=== PATIENT | male | born 1990 | race Caucasian/White ===

== ENCOUNTER 2016-12-03 21:49 | Emergency (ER) | payer OTHER ==
[2016-12-03 22:42] VITALS: BP 133/86
--- NOTE | 2016-12-03 23:10 | UC ---
UC General HPI - HPI Summary HPI Summary: The patient comes in today for: 1. Poor hearing--right ear. Onset: 2-3 weeks. Palliative/provocative: Nothing makes it better or worse. Quality: no pain Region: Right ear. Severity: 0/10 Time: Constant. Associated symptoms: He can hear "a little bit." Allergies are acting up. Vertigo: None. Cough: Nothing comes up. Sinus: full Rhinitis: Clear. He has allergies which he is treating with an [id number] antihistamine. * - History of Current Complaint Chief Complaint: UCEar Stated Complaint: EAR PAIN Time Seen by Provider: 12/03/16 23:02 Hx Obtained From: Patient, Family/Project [employer] - Allergy/Home Medications Allergies/Adverse Reactions: Allergies Allergy/AdvReac Type Severity Reaction Status Date / Time Malt AdvReac Intermediate Agitation Verified 12/03/16 22:43 Steroid MDI AdvReac Severe Agitation Uncoded 12/03/16 22:43 DAIRY AdvReac Mild Congestion Uncoded 12/03/16 22:43 PMH/Surg Hx/FS Hx/Imm Hx Previously Healthy: No Endocrine History Of: Denies: Diabetes, Thyroid Disease, Hyperthyroidism, Hypothyroidism, Dyslipidemia Cardiovascular History Of: Denies: Cardiac Disorders, Hypertension, Pacemaker/ICD, Myocardial Infarction , Congestive Heart Failure, Atrial Fibrillation, Deep Vein Thrombosis, Bleeding Disorders Respiratory History Of: Reports: Asthma - allergy induced Denies: COPD, Bronchitis, Pneumonia, Pulmonary Embolism GI/ History Of: Reports: Gastroesophageal Reflux - He is not on medication for this, but he has "stomach issues." Denies: Ulcer, Gastrointestinal Bleed, Gall Bladder Disease, Kidney Stones, Diverticulitis, Renal Disease, Urosepsis Neurological History Of: Denies: TIA, CVA, Dementia, Seizures, Migraine Psychological History Of: Reports: Anxiety - Mother states that he has "severe anxiety." Denies: Depression, Bipolar Disorder, Schizophrenia, Post Traumatic Stress Disorder Cancer History Of: Denies: Lung Cancer, Colorectal Cancer, Breast Cancer, Prostate Cancer, Cervical Cancer Other History Of: Negative For: HIV, Hepatitis B, Hepatitis C, Anticoagulant Therapy - Surgical History Surgical History: Yes Surgery Procedure, Year, and Place: RHINOPLASTY 2004. TONSILLECTOMY 1992 - Family History Known Family History: Positive: Cardiac Disease, Hypertension, Diabetes - Social History Occupation: Employed Full-time Alcohol Use: Rare Substance Use Type: Marijuana Smoking Status (MU): Heavy Every Day Tobacco Smoker Type: Cigarettes Amount Used/How Often: 1/2 - 1 PPD Length of Time of Smoking/Using Tobacco: since age 18 Have You Smoked in the Last Year: Yes - Immunization History Most Recent Influenza Vaccination: "Last year" Most Recent Tetanus Shot: unknown Most Recent Pneumonia Vaccination: unsure Review of Systems Constitutional: Negative Skin: Negative Eyes: Negative ENT: Negative Respiratory: Negative Cardiovascular: Negative Gastrointestinal: Negative Genitourinary: Negative All Other Systems Reviewed And Are Negative: Yes Physical Exam Triage Information Reviewed: Yes Appearance: Well-Appearing, No Pain Distress, Well-Nourished Vital Signs: Initial Vital Signs Temp 98.5 F 12/03/16 22:38 Pulse 76 12/03/16 22:38 Resp 20 12/03/16 22:38 BP 133/86 12/03/16 22:38 Pulse Ox 97 12/03/16 22:38 Vital Signs Reviewed: Yes Eyes: Positive: Conjunctiva Clear. Negative: Discharge ENT: Positive: Hearing grossly normal. Negative: Pharyngeal erythema, Nasal congestion, Nasal drainage, TM bulging, TM dull, TM red, Tonsillar swelling, Tonsillar exudate Dental: Negative: Gross Decay/Caries @, Dental Fracture @ Neck: Positive: Supple, Nontender, No Lymphadenopathy. Negative: Nuchal Rigidity Respiratory: Positive: Lungs clear, No respiratory distress, No accessory muscle use. Negative: Rhonchi, Wheezing Cardiovascular: Positive: RRR, No Murmur Abdomen Description: Positive: Nontender, No Organomegaly, Soft. Negative: Distended, Guarding Musculoskeletal: Positive: Strength Intact, ROM Intact Neurological: Positive: Alert, Muscle Tone Normal Psychological: Positive: Normal Response To Family, Age Appropriate Behavior, Consolable Skin: Negative: rashes, breakdown Course/Dx - Course Course Of Treatment: The patient was told that his ear exam was normal-- suggests that he has eustachian tube dysfunction. He was told what this was and how to treat it. He wants to try Singulair. - Differential Dx - Multi-Symptom Provider Diagnoses: Eustachian tube dysfunction Discharge - Discharge Plan Condition: Stable Disposition: HOME Referrals: Gurpreet Joya MD [Primary Care Provider] - 2 Weeks Additional Instructions: Please take the Singulair and try popping your ears with blowing up new balloons. See your primary care provider in about 2 to 4 weeks to see how you are doing. If you get worse, please be seen again at that time.
== END 2016-12-03 23:29 | disposition home or self-care (01) ==
LOC: UCEAST 21:49
DX: H69.91 Unspecified Eustachian tube disorder, right ear (principal); J45.909 Unspecified asthma, uncomplicated; K21.9 Gastro-esophageal reflux disease without esophagitis; F41.9 Anxiety disorder, unspecified; F17.210 Nicotine dependence, cigarettes, uncomplicated
CPT/HCPCS: 99212; G0463

== ENCOUNTER 2017-06-27 15:09 | Emergency (ER) | payer OTHER ==
[2017-06-27 15:44] VITALS: BP 130/77
--- NOTE | 2017-06-27 16:03 | UC ---
Nausea/Vomiting/Diarrhea HPI - HPI Summary HPI Summary: 26 year old male presents with severe projectile vomiting and nausea. - History of Current Complaint Chief Complaint: UCGeneralIllness Stated Complaint: VOMMITING/DIARRHEA Time Seen by Provider: 06/27/17 16:02 Hx Obtained From: Patient Onset/Duration: Sudden Onset Severity Initially: Moderate Severity Currently: Moderate Pain Scale Used: 0-10 Numeric - 7 Character: Sharp Alleviating Factor(s): Nothing - Allergies/Home Medications Allergies/Adverse Reactions: Allergies Allergy/AdvReac Type Severity Reaction Status Date / Time Malt AdvReac Intermediate Agitation Verified 06/27/17 15:38 Steroid MDI AdvReac Severe Agitation Uncoded 06/27/17 15:38 DAIRY AdvReac Mild Congestion Uncoded 06/27/17 15:38 Home Medications: Home Medications NK [No Home Medications Reported] 06/27/17 [History Confirmed 06/27/17] PMH/Surg Hx/FS Hx/Imm Hx Previously Healthy: Yes Other History Of: Negative For: HIV, Hepatitis B, Hepatitis C, Anticoagulant Therapy - Surgical History Surgical History: Yes Surgery Procedure, Year, and Place: RHINOPLASTY 2004. TONSILLECTOMY 1992 - Family History Known Family History: Positive: Cardiac Disease, Hypertension, Diabetes - Social History Alcohol Use: None Substance Use Type: Marijuana Smoking Status (MU): Heavy Every Day Tobacco Smoker Type: Cigarettes Amount Used/How Often: 1/2 - 1 PPD Length of Time of Smoking/Using Tobacco: since age 18 Have You Smoked in the Last Year: Yes - Immunization History Most Recent Influenza Vaccination: "Last year" Most Recent Tetanus Shot: unknown Most Recent Pneumonia Vaccination: unsure Review of Systems Constitutional: Fatigue Skin: Negative Eyes: Negative ENT: Negative Respiratory: Negative Cardiovascular: Negative Gastrointestinal: Vomiting, Diarrhea, Nausea Genitourinary: Negative Motor: Negative Neurovascular: Negative Musculoskeletal: Negative Neurological: Negative Psychological: Negative All Other Systems Reviewed And Are Negative: Yes Physical Exam Triage Information Reviewed: Yes Vital Signs: Initial Vital Signs Temp 36.6 C 06/27/17 15:39 Pulse 93 06/27/17 15:39 Resp 20 06/27/17 15:39 BP 130/77 06/27/17 15:39 Pulse Ox 99 06/27/17 15:39 Vital Signs Reviewed: Yes Eye Exam: Normal ENT Exam: Normal Dental Exam: Normal Neck exam: Normal Neck: Positive: 1 Respiratory Exam: Normal Cardiovascular Exam: Normal Abdominal Exam: Normal Musculoskeletal Exam: Normal Neurological Exam: Normal Psychological Exam: Normal Skin Exam: Normal Naus/Vom/Diarrhea Course/Dx - Differential Dx/Diagnosis Provider Diagnoses: nausea. vomitting Condition At Discharge: Stable Discharge - Discharge Plan Condition: Stable Disposition: OTHER Discharge Disposition Comment: patient suggested to go to the er Patient Education Materials: Medicinal Use of Cannabis (ED) Referrals: Keith Bishop NP [Primary Care Provider] - Additional Instructions: patient suggested to go to the er for severe nausea and vomiting
== END 2017-06-27 16:23 ==
LOC: UCEAST 15:09
DX: R11.2 Nausea with vomiting, unspecified (principal); Z72.0 Tobacco use
CPT/HCPCS: 87502; 99212; G0463

== ENCOUNTER 2017-06-27 16:35 | Emergency (ER) | payer OTHER ==
[2017-06-27] MEDS ORDERED: Ondansetron INJ* 2 MG/ML VIAL ONE (17:08)
[2017-06-27] MEDS ORDERED: Ondansetron INJ* 2 MG/ML VIAL IV ONE (17:23)
[2017-06-27] MEDS ORDERED: NS 0.9% 1000 ML* 1,000 ML IV ONE (17:28)
[2017-06-27 17:45] LABS: Hematocrit 52 % (42-52); Hemoglobin 17.3 g/dl (14.0-18.0); Mean Corpuscular HGB Conc 33 g/dl (31-36); Mean Corpuscular Hemoglobin 29 pg (27-31); Mean Corpuscular Volume 87 fL (80-94); Mean Platelet Volume 7 um3 (7.4-10.4); Red Blood Count 6.01 10^6/ul (4.0-5.4); Red Cell Distribution Width 14 % (10.5-15); White Blood Count 14.5 10^3/ul (3.5-10.8)
[2017-06-27] MEDS ORDERED: Metoclopramide IV* 5 MG/ML 2 ML VIAL IV ONE (17:50)
[2017-06-27 18:00] LABS: Albumin 5.2 g/dL (3.2-5.2); BUN/Creatinine Ratio 18.5 (8-20); Calcium 9.9 mg/dL (8.6-10.3); EGFR African American 106.3 (>60); EGFR Non-African American 82.6 (>60); Globulin 3.1 g/dL (2-4); Magnesium 2.1 mg/dL (1.9-2.7); Potassium 4.3 mmol/L (3.5-5.0); Total Bilirubin 1.1 mg/dL (0.2-1.0); Total Protein 8.3 g/dL (6.4-8.9)
[2017-06-27] MEDS ORDERED: diPHENhydraMINE IV* 50 MG/ML 1 ml VIAL (BENADRYL) IV ONE (19:20)
[2017-06-27] MEDS ORDERED: diPHENhydraMINE IV* 50 MG/ML 1 ml VIAL (BENADRYL) ONE (19:21)
[2017-06-27] MEDS ORDERED: LORazepam INJ* 2 MG/ML 1 ML VIAL IV PUSH ONE (19:25)
[2017-06-27] MEDS ORDERED: LORazepam INJ* 2 MG/ML 1 ML VIAL ONE (19:25)
[2017-06-27] MEDS ORDERED: Ondansetron ODT TAB* 4 MG PO ONE (20:17)
[2017-06-27] MEDS ORDERED: LORazepam TAB(*) 1 MG PO ONE (20:17)
--- NOTE | 2017-06-27 20:20 | ED ---
Rosalva Nunn Gabriel, scribed for Shantell Park MD on 06/27/17 at 1859 . Complex/Multi-Sys Presentation - HPI Summary HPI Summary: This patient is a 26 year old M presenting to [facility], transferred from [facility] by private car accompanied by his mother with a chief complaint of vomiting and diarrhea that began 16 hours ago. Pt has hx seizures, sees Dr. Cherry and Dr. Gordon, and uses CBD oil daily to control his seizures. Patient denies fever, sore throat, ABD pain, BEAUCHAMP, and CP. Pt had an influenza swab done at that was neg. Patient reports having similar episodes when he was 7 and 15 years old during these his potassium dropped. He smokes CBD oil daily for seizures and hasnt had one since a year ago. He cannot drink alcohol or eat tomatoes without vomiting and while at a [employer] he ate hot dogs that he believe had both of these in it. - History Of Current Complaint Chief Complaint: EDNauseaVomitDiarrh Time Seen by Provider: 06/27/17 17:28 Hx Obtained From: Patient, Family/[employer] - mother Onset/Duration: Sudden Onset, Lasting Hours - 16, Still Present Timing: Constant Severity Currently: Moderate Severity Initially: Moderate Location: Negative - no pain Aggravating Factor(s): nothing Alleviating Factor(s): nothing Associated Signs And Symptoms: Positive: Nausea, Vomiting, Diarrhea, Other - neg sore throat or URI sxs, no cough, no urinary symptoms.. Negative: Headache , Chest Pain, Abdominal Pain - Allergies/Home Medications Allergies/Adverse Reactions: Allergies Allergy/AdvReac Type Severity Reaction Status Date / Time Metoclopramide [From Reglan] Allergy Agitation Verified 06/27/17 19:28 Malt AdvReac Intermediate Agitation Verified 06/27/17 15:38 Steroid MDI AdvReac Severe Agitation Uncoded 06/27/17 15:38 DAIRY AdvReac Mild Congestion Uncoded 06/27/17 15:38 PMH/Surg Hx/FS Hx/Imm Hx Previously Healthy: No - seizures Endocrine/Hematology History: Denies: Hx Anticoagulant Therapy, Hx Diabetes, Hx Thyroid Disease Cardiovascular History: Denies: Hx Congestive Heart Failure, Hx Deep Vein Thrombosis, Hx Hypertension , Hx Myocardial Infarction, Hx Pacemaker/ICD Comment Only: Other Cardiovascular Problems/Disorders - PALPATIONS A CHILD Respiratory History: Reports: Hx Asthma - allergy induced Denies: Hx Chronic Obstructive Pulmonary Disease (COPD), Hx Lung Cancer, Hx Pneumonia, Hx Pulmonary Embolism GI History: Denies: Hx Gall Bladder Disease, Hx Gastrointestinal Bleed, Hx Ulcer, Hx Urosepsis History: Denies: Hx Kidney Stones, Hx Renal Disease Musculoskeletal History: Reports: Other Musculoskeletal History - hx B/L torn rotator cuff Sensory History: Denies: Hx Hearing Aid Neurological History: Reports: Hx Seizures - but normal EEG noted in record in 2013 Denies: Hx Dementia, Hx Migraine, Hx Transient Ischemic Attacks (TIA) Psychiatric History: Reports: Hx Anxiety - Mother states that he has "severe anxiety.", Hx Panic Disorder - ANXIETY, Hx of Violent Episodes Against Others Denies: Hx Eating Disorder, Hx Depression, Hx Schizophrenia, Hx Bipolar Disorder - Surgical History Surgery Procedure, Year, and Place: RHINOPLASTY 2004. TONSILLECTOMY 1992 - Immunization History Immunizations Up to Date: Yes Infectious Disease History: No Infectious Disease History: Denies: Hx Clostridium Difficile, Hx Hepatitis, Hx Human Immunodeficiency Virus (HIV), Hx of Known/Suspected MRSA, Hx Shingles, Hx Tuberculosis, Hx Known/ Suspected VRE, Hx Known/Suspected VRSA, History Other Infectious Disease - HX ENCEPHALITIS, Traveled Outside the [place] in Last 30 Days - Family History Known Family History: Positive: Cardiac Disease, Hypertension, Diabetes, Other - note pt is adopted, but he knows his parents' histories - Social History Lives: With Family Alcohol Use: None Hx Substance Use: Yes Substance Use Type: Reports: Marijuana - for medicinal use per pt Hx Tobacco Use: Yes Smoking Status (MU): Heavy Every Day Tobacco Smoker Type: Cigarettes Amount Used/How Often: 1/2 - 1 PPD Length of Time of Smoking/Using Tobacco: since age 18 Have You Smoked in the Last Year: Yes Review of Systems Positive: Fatigue. Negative: Fever Negative: Sore Throat Negative: Chest Pain Respiratory: Negative Positive: Vomiting, Diarrhea, Nausea. Negative: Abdominal Pain Genitourinary: Negative Skin: Negative Negative: Headache Psychological: Normal All Other Systems Reviewed And Are Negative: Yes Physical Exam - Summary Physical Exam Summary: Appearance: Ill-appearing, no pain distress, Well-nourished Skin: Warm, color reflects adequate perfusion Head: Normal Head/Face Eyes: Conjunctiva clear ENT: TM's clear, pharynx normal, Neck: Supple, nontender, no lymphadenopathy Respiratory: Lungs clear, Normal breath sounds, no respiratory distress Cardio: RRR, No murmur, pulses normal, brisk capillary refill Abdomen: soft, nontender, no organomegaly, no masses Bowel sounds: present Musculoskeletal: Strength Intact/ ROM intact Neuro: Alert, muscle tone normal, facial symmetry, speech normal, sensory/motor intact A&Ox3, CN II-XII intact, Gait WNL Psychological: Normal Triage Information Reviewed: Yes Vital Signs On Initial Exam: Initial Vitals Temp Pulse Resp BP Pulse Ox 98.1 F 78 18 147/84 99 06/27/17 16:49 06/27/17 16:49 06/27/17 16:49 06/27/17 16:49 06/27/17 16:49 Vital Signs Reviewed: Yes - Meena Coma Scale Coma Scale Total: 15 Diagnostics - Vital Signs Vital Signs Temp Pulse Resp BP Pulse Ox 06/27/17 16:49 98.1 F 78 18 147/84 99 - Laboratory Lab Results: Lab Results 06/27/17 06/27/17 Range/Units 17:17 17:17 WBC 14.5 H (3.5-10.8) 10^3/ul RBC 6.01 H (4.0-5.4) 10^6/ul Hgb 17.3 (14.0-18.0) g/dl Hct 52 (42-52) % MCV 87 (80-94) fL MCH 29 (27-31) pg MCHC 33 (31-36) g/dl RDW 14 (10.5-15) % Plt Count 211 (150-450) 10^3/ul MPV 7 L (7.4-10.4) um3 Neut % (Auto) 90.7 H (38-83) % Lymph % (Auto) 5.4 L (25-47) % Grady % (Auto) 3.7 (1-9) % Eos % (Auto) 0.1 (0-6) % Baso % (Auto) 0.1 (0-2) % Absolute Neuts (auto) 13.2 H (1.5-7.7) 10^3/ul Absolute Lymphs (auto) 0.8 L (1.0-4.8) 10^3/ul Absolute Monos (auto) 0.5 (0-0.8) 10^3/ul Absolute Eos (auto) 0 (0-0.6) 10^3/ul Absolute Basos (auto) 0 (0-0.2) 10^3/ul Absolute Nucleated RBC 0 10^3/ul Nucleated RBC % 0 Sodium 139 (133-145) mmol/L Potassium 4.3 (3.5-5.0) mmol/L Chloride 104 (101-111) mmol/L Carbon Dioxide 27 (22-32) mmol/L Anion Gap 8 (2-11) mmol/L BUN 20 (6-24) mg/dL Creatinine 1.08 (0.67-1.17) mg/dL Est GFR ( Amer) 106.3 (>60) Est GFR (Non-Af Amer) 82.6 (>60) BUN/Creatinine Ratio 18.5 (8-20) Glucose 133 H (70-100) mg/dL Calcium 9.9 (8.6-10.3) mg/dL Magnesium 2.1 (1.9-2.7) mg/dL Total Bilirubin 1.10 H (0.2-1.0) mg/dL AST 21 (13-39) U/L ALT 27 (7-52) U/L Alkaline Phosphatase 85 (34-104) U/L Total Protein 8.3 (6.4-8.9) g/dL Albumin 5.2 (3.2-5.2) g/dL Globulin 3.1 (2-4) g/dL Albumin/Globulin Ratio 1.7 (1-3) Lipase 10 L (11.0-82.0) U/L Result Diagrams: 17 17:17 17 17:17 Lab Statement: Any lab studies that have been ordered have been reviewed, and results considered in the medical decision making process. Re-Evaluation - Re-Evaluation First Eval Re-Evaluation Time: 19:20 - pt with extrapyramidal side effects of reglan, pacing in room, can't sit still; no dystonia of face. Rx'd with benadryl and lorazepam with complete resolution. Pt resting comfortably, resps unlabored. Change: Worse Second Eval Re-Evaluation Time: 21:00 - temp 100.7, no vomiting in ED, continues to deny focal symptoms for source of fever, neck supple, no BEAUCHAMP. Given acetaminophen. Mother is comfortable with discharge home. Pt is ambulatory with a steady gait. Change: Worse Complex Multi-Symp Course/Dx Course Of Treatment: pt was given zofran x 2, with continued nausea, no further vomiting. WBC count 14.3 with 90% neutrophils. Influenza was neg at . K+ is normal. Reglan given and shortly afterward pt couldn't sit still. Up pacing from the stretcher. Medicated with benadryl and lorazepam with complete resolution of symptoms. Pt rested in ED after meds. Developed temp 100.7 at time of discharge. Pt not toxic appearing. Mother and pt agreeeable to discharge. Given acetaminophen prior to DC. Pt labeled self as allergic to reglan, with reaction extrapyramidal symptoms. - Diagnoses Differential Diagnoses/HQI/PQRI: Metabolic Abnormality, Sepsis, Urinary Tract Infection Provider Diagnoses: Nausea & vomiting, Extrapyramidal and movement disorder, unspecified Discharge - Discharge Plan Condition: Stable Disposition: HOME Prescriptions: Lorazepam [Ativan 1 MG TAB] 1 mg PO Q8H PRN #10 tab MDD 3 PRN Reason: Agitation Ondansetron ODT TAB* [Zofran 4 MG Odt TAB*] 4 mg PO Q6H PRN #20 tab.odt PRN Reason: Vomiting Patient Education Materials: Acute Nausea and Vomiting (ED), Extrapyramidal Symptoms (ED) Forms: *Work Release Referrals: Keith Bishop, JOINT CUTTER [Primary Care Provider] - 3 Days Additional Instructions: You had an adverse reaction to reglan, and extrapyramidal reaction. We gave you benadryl and lorazepam to treat that adverse reaction. You may continue to take benadryl 25-50mg every 6 hrs as needed if you still feel restlessness. You may also take lorazepam as directed for these symptoms. Label yourself as allergic to reglan. The vomiting is probably a viral syndrome. You may take ondansetron as directed if you have further nausea and vomiting. You did not have an adverse reaction to ondansetron and we gave that to you in the ER. Return to the ER if you have new or worsening symptoms. The documentation as recorded by the Rosalva meyer Gabriel accurately reflects the service I personally performed and the decisions made by me, Shantell Park MD.
[2017-06-27] MEDS ORDERED: Acetaminophen TAB* 325 MG PO ONE (20:46)
[2017-06-27 20:56] VITALS: BP 123/73
== END 2017-06-27 21:04 | disposition home or self-care (01) ==
LOC: ED 16:35
DX: R11.2 Nausea with vomiting, unspecified (principal); G25.9 Extrapyramidal and movement disorder, unspecified; F17.210 Nicotine dependence, cigarettes, uncomplicated
CPT/HCPCS: 36415; 80053; 83690; 83735; 85025; A9270-GY; J1200; J2060; J2405; J2765

== ENCOUNTER 2019-02-17 22:59 | Emergency (ER) | payer OTHER ==
[2019-02-17] MEDS ORDERED: Ondansetron INJ* 2 MG/ML VIAL IV ONE (23:58)
[2019-02-17] MEDS ORDERED: NS 0.9% 1000 ML** 1,000 ML IV ONE (23:58)
[2019-02-18] MEDS ORDERED: NS 0.9% 1000 ML** 1,000 ML IV ONE (00:57)
--- NOTE | 2019-02-18 01:04 | ED ---
Seizure - HPI Summary HPI Summary: 28-year-old male presents with potential seizure today. He has a history of seizures. Mom states that was with him and also he became unresponsive. Face seem to contort and then he seemed to have a whole body spasms. He then fell to the floor. Mom states that she called EMS and while she was on the phone he seemed to stop breathing for a couple seconds. He then seemed to be hyperventilating. He continued to have full body spasms. Mom states that then he seemed to wake up a little bit but was very uncoordinated and kept falling and hitting his head. He was not able to talk during this time. Mom states this is unlike any of his other seizures. Mom states that he was tried on different seizure medication when he was 18 and had terrible side effects. They decided to do medical marijuana and that seemed to control seizures for years as not had a seizure since was 18. States that he was under a lot of stress today. He also was little bit dehydrated. He states he was little nauseous and vomited before the seizure like activity started. He is back to his baseline. He admits a little bit headache. He denies any dizziness. admits to nausea. No vomiting. No abdominal pain. He states he does not remember any of this. He states he is very sensitive to medicine. Also admits to some muscle cramps. - History Of Current Complaint Chief Complaint: EDSeizure Time Seen by Provider: 02/17/19 23:46 - Allergies/Home Medications Allergies/Adverse Reactions: Allergies Allergy/AdvReac Type Severity Reaction Status Date / Time metoclopramide [From Reglan] Allergy Agitation Verified 09/10/18 20:38 malt Allergy Agitation Uncoded 09/10/18 20:38 Steroid MDI AdvReac Severe Agitation Uncoded 09/10/18 20:38 DAIRY AdvReac Mild Congestion Uncoded 09/10/18 20:38 Home Medications: Home Medications Non Formulary Respiratory Med [Non Formulary Respiratory Med(Nf)] 1 dose PO DAILY 02/18/19 [History Confirmed 02/18/19] PMH/Surg Hx/FS Hx/Imm Hx Endocrine/Hematology History: Denies: Hx Anticoagulant Therapy, Hx Diabetes, Hx Thyroid Disease Cardiovascular History: Denies: Hx Congestive Heart Failure, Hx Deep Vein Thrombosis, Hx Hypertension , Hx Myocardial Infarction, Hx Pacemaker/ICD Comment Only: Other Cardiovascular Problems/Disorders - PALPATIONS A CHILD Respiratory History: Reports: Hx Asthma - allergy induced Denies: Hx Chronic Obstructive Pulmonary Disease (COPD), Hx Lung Cancer, Hx Pneumonia, Hx Pulmonary Embolism GI History: Denies: Hx Gall Bladder Disease, Hx Gastrointestinal Bleed, Hx Ulcer, Hx Urosepsis History: Denies: Hx Kidney Stones, Hx Renal Disease Musculoskeletal History: Reports: Hx Back Problems - "bad discs", Other Musculoskeletal History - hx B/L torn rotator cuff Sensory History: Denies: Hx Hearing Aid Neurological History: Reports: Hx Seizures - but normal EEG noted in record in 2013 Denies: Hx Dementia, Hx Migraine, Hx Transient Ischemic Attacks (TIA) Psychiatric History: Reports: Hx Anxiety - Mother states that he has "severe anxiety.", Hx Panic Disorder - ANXIETY, Hx of Violent Episodes Against Others Denies: Hx Eating Disorder, Hx Depression, Hx Schizophrenia, Hx Bipolar Disorder - Surgical History Surgery Procedure, Year, and Place: RHINOPLASTY 2004. TONSILLECTOMY 1992 - Immunization History Immunizations Up to Date: Yes Infectious Disease History: No Infectious Disease History: Denies: Hx Clostridium Difficile, Hx Hepatitis, Hx Human Immunodeficiency Virus (HIV), Hx of Known/Suspected MRSA, Hx Shingles, Hx Tuberculosis, Hx Known/ Suspected VRE, Hx Known/Suspected VRSA, History Other Infectious Disease - HX ENCEPHALITIS, Traveled Outside the [place] in Last 30 Days - Family History Known Family History: Positive: Cardiac Disease, Hypertension, Diabetes, Other - note pt is adopted, but he knows his parents' histories - Social History Alcohol Use: None Hx Substance Use: Yes Substance Use Type: Reports: Marijuana Substance Use Comment - Amount & Last Used: 02/17/19 Hx Tobacco Use: Yes Smoking Status (MU): Heavy Every Day Tobacco Smoker Type: Cigarettes Amount Used/How Often: 1/2 - 1 PPD Length of Time of Smoking/Using Tobacco: since age 18 Have You Smoked in the Last Year: Yes Review of Systems Negative: Fever Negative: Chest Pain Negative: Shortness Of Breath Neurological: Other - seizure Positive: Headache All Other Systems Reviewed And Are Negative: Yes Physical Exam Triage Information Reviewed: Yes Vital Signs On Initial Exam: Initial Vitals Temp Pulse Resp BP Pulse Ox 99.1 F 96 18 129/73 97 02/17/19 23:13 02/17/19 23:13 02/17/19 23:13 02/17/19 23:13 02/17/19 23:13 Vital Signs Reviewed: Yes Appearance: Positive: Well-Appearing Skin: Positive: Warm, Dry Head/Face: Positive: Normal Head/Face Inspection Eyes: Positive: Normal, EOMI, SOUTH, Conjunctiva Clear ENT: Positive: Pharynx normal, TMs normal, Other - mucous membranes appear dry Respiratory/Lung Sounds: Positive: Clear to Auscultation, Breath Sounds Present Cardiovascular: Positive: Normal, RRR Abdomen Description: Positive: Nontender, Soft Bowel Sounds: Positive: Present Musculoskeletal: Positive: Normal Neurological: Positive: Sensory/Motor Intact, Alert, Oriented to Person Place, Time, CN Intact II-III Psychiatric: Positive: Normal Diagnostics - Vital Signs Vital Signs Temp Pulse Resp BP Pulse Ox 02/18/19 00:00 90 24 95 02/17/19 23:50 91 18 122/73 98 02/17/19 23:30 92 21 96 02/17/19 23:20 90 15 129/73 99 02/17/19 23:13 99.1 F 96 18 129/73 97 - Laboratory Result Diagrams: 02/18/19 00:57 02/18/19 00:57 Lab Statement: Any lab studies that have been ordered have been reviewed, and results considered in the medical decision making process. - EKG No standard instances Cardiac Rate: NL EKG Rhythm: Sinus Rhythm EKG Comparison: No Significant Change Summary of EKG Findings: sinus rhythm, early repolization Re-Evaluation - Re-Evaluation First Eval Re-Evaluation Time: 01:37 Comment: patient asleep. discussed with mom that do not want to start seizure meds at this time. patient is very anxious so will give dose of ativan. Course/Dx - Course Course Of Treatment: 28-year-old male presents with potential seizure today. He has a history of seizures. Mom states that was with him and also he became unresponsive. Face seem to contort and then he seemed to have a whole body spasms. He then fell to the floor. Mom states that she called EMS and while she was on the phone he seemed to stop breathing for a couple seconds. He then seemed to be hyperventilating. He continued to have full body spasms. Mom states that then he seemed to wake up a little bit but was very uncoordinated and kept falling and hitting his head. He was not able to talk during this time. Mom states this is unlike any of his other seizures. Mom states that he was tried on different seizure medication when he was 18 and had terrible side effects. They decided to do medical marijuana and that seemed to control seizures for years as not had a seizure since was 18. States that he was under a lot of stress today. He also was little bit dehydrated. He states he was little nauseous and vomited before the seizure like activity started. He is back to his baseline. He admits a little bit headache. He denies any dizziness. admits to nausea. No vomiting. No abdominal pain. He states he does not remember any of this. He states he is very sensitive to medicine. Also admits to some muscle cramps. On exam has normal neuro exam. Appears dry. Gave some fluids. White blood cell count 12. potassium slightly low at 3.3 so gave supplement. discussed adding on seizure meds but patient has had such a bad reaction in the past that do not want to start any at this time. told to follow up with neurology. pateint understand and agrees with plan. - Diagnoses Differential Diagnosis/HQI/PQRI: Positive: Metabolic Disorder, Known Seizure Disorder Provider Diagnoses: Seizure Discharge - Sign-Out/Discharge Documenting (check all that apply): Patient Departure Patient Received Moderate/Deep Sedation with Procedure: No - Discharge Plan Condition: Good Disposition: HOME Patient Education Materials: Epilepsy (ED) Referrals: Keith Bishop NP [Primary Care Provider] - Alfredo Valenzuela MD [Medical Doctor] - Additional Instructions: follow up with neurology Return to ED if develop any new or worsening symptoms - Billing Disposition and Condition Condition: GOOD Disposition: Home
[2019-02-18 01:07] LABS: ABS Lymphocytes 1.7 10^3/ul (1.0-4.8); ABS Monocytes 0.7 10^3/ul (0-0.8); ABS Neutrophils 9.9 10^3/ul (1.5-7.7); Hematocrit 42 % (42-52); Hemoglobin 14.2 g/dL (14.0-18.0); Lymphocyte % 13.6 %; Mean Corpuscular HGB Conc 34 g/dL (31-36); Mean Corpuscular Hemoglobin 29 pg (27-31); Mean Corpuscular Volume 86 fL (80-94); Mean Platelet Volume 7.3 fL (7.4-10.4); Nucleated Red Blood Cells % 0.1; Platelet Count 172 10^3/uL (150-450); Red Blood Count 4.86 10^6 /uL (4.18-5.48); Red Cell Distribution Width 13 % (10-15); White Blood Count 12.3 10^3/uL (3.5-10.8)
[2019-02-18 01:14] LABS: INR 1.08 (0.82-1.09)
[2019-02-18 01:26] LABS: Albumin 4.6 g/dL (3.2-5.2); BUN/Creatinine Ratio 15.6 (8-20); Calcium 9.5 mg/dL (8.6-10.3); EGFR African American 112.9 (>60); EGFR Non-African American 93.3 (>60); Globulin 2.3 g/dL (2-4); HDL Cholesterol 33.9 mg/dL; Magnesium 2.1 mg/dL (1.9-2.7); Potassium 3.3 mmol/L (3.5-5.0); Total Bilirubin 0.8 mg/dL (0.2-1.0); Total Protein 6.9 g/dL (6.4-8.9)
[2019-02-18] MEDS ORDERED: Potassium Chlor TAB* 20 MEQ TAB.ER PO ONE (01:26)
[2019-02-18 01:28] LABS: Troponin I 0.03 ng/mL (<0.04)
[2019-02-18] MEDS ORDERED: LORazepam INJ* 2 MG/ML 1 ML VIAL IV PUSH ONE (01:37)
[2019-02-18] MEDS ORDERED: Lorazepam PYXIS KEY PRN (01:37)
[2019-02-18 02:38] VITALS: BP 117/60
== END 2019-02-18 02:38 | disposition home or self-care (01) ==
LOC: ED 22:59
DX: R56.9 Unspecified convulsions (principal); J45.909 Unspecified asthma, uncomplicated; F17.210 Nicotine dependence, cigarettes, uncomplicated; Z88.8 Allergy status to other drugs, medicaments and biological substances
CPT/HCPCS: 36415; 80053; 80061; 83605; 83735; 84484; 85025; 85610; 93005; 96361; 96374; 96375; 99284; A9270-GY; J2060; J2405

== ENCOUNTER 2019-02-19 12:39 | Emergency (ER) | payer OTHER ==
[2019-02-19 12:51] VITALS: BP 118/78
--- NOTE | 2019-02-19 12:51 | UC ---
Hip/Pelvis Pain - HPI Summary HPI Summary: Patient is 28 year old , who present today to the urgent care with low back , left hip and right shoulder pain for past 2 days. He reports that on Wednesday night he had a seizure and while mom was calling 911 he fell about 3-4 times injuring his hip and the right shoulder. Few seconds the ER he ambulance for further management. He i s not on any anti-seizure meds since he had a bad reaction when tried to start i long time back. He is controlling his seizures via medical marijuana. Last seizure was in 2013 and he was doing very well until 2 days ago Shoulder pain in his anterior and worse with overhead activities. He denies any numbness or tingling. Left shoulder pain is mainly in the anterolateral aspect and groin with associated some low back pain. Initially he had some radiation down the left leg but not anymore. There is mild numbness and tingling in the left foot. Associated symptoms: Denies any incontinence or saddle anesthesia He is not taking any medications for pain - History Of Current Complaint Chief Complaint: UCUpperExtremity Stated Complaint: HIP AND SHOULDER PAIN Time Seen by Provider: 02/19/19 12:46 Hx Obtained From: Patient - Allergies/Home Medications Allergies/Adverse Reactions: Allergies Allergy/AdvReac Type Severity Reaction Status Date / Time metoclopramide [From Reglan] Allergy Agitation Verified 02/19/19 12:51 malt Allergy Agitation Uncoded 02/19/19 12:51 Steroid MDI AdvReac Severe Agitation Uncoded 02/19/19 12:51 DAIRY AdvReac Mild Congestion Uncoded 02/19/19 12:51 PMH/Surg Hx/FS Hx/Imm Hx - Additional Past Medical History Additional PMH: Past Medical History : Allergic asthma, seizures(not on medications and controlled with medical marijuana) Past Surgical History: No Past History of Procedure Family History : non contributory Social History : No alcohol, daily smoker, medical marijuana. Previously Healthy: Yes Other History Of: Negative For: HIV, Hepatitis B, Hepatitis C, Anticoagulant Therapy - Surgical History Surgical History: Yes Surgery Procedure, Year, and Place: RHINOPLASTY 2004. TONSILLECTOMY 1992 - Family History Known Family History: Positive: Cardiac Disease, Hypertension, Diabetes, Other - note pt is adopted, but he knows his parents' histories , Non- Contributory - Social History Alcohol Use: None Substance Use Type: Marijuana Substance Use Comment - Amount & Last Used: 02/17/19 Smoking Status (MU): Heavy Every Day Tobacco Smoker Type: Cigarettes Amount Used/How Often: 1/2 - 1 PPD Length of Time of Smoking/Using Tobacco: since age 18 Have You Smoked in the Last Year: Yes - Immunization History Most Recent Influenza Vaccination: "Last year" Most Recent Tetanus Shot: unknown Most Recent Pneumonia Vaccination: unsure Review of Systems All Other Systems Reviewed And Are Negative: Yes Constitutional: Positive: Negative Skin: Positive: Negative Eyes: Positive: Negative ENT: Positive: Negative Respiratory: Positive: Negative Cardiovascular: Positive: Negative Gastrointestinal: Positive: Negative Genitourinary: Positive: Negative Motor: Positive: Negative Neurovascular: Positive: Negative Musculoskeletal: Positive: Arthralgia - Right shoulder, left hip and low back pain, Decreased ROM - Limited and painful range of motion of right shoulder, low back and left hip Neurological: Positive: Negative Psychological: Positive: Negative Is Patient Immunocompromised?: No Physical Exam - Summary Physical Exam Summary: Vital Signs Reviewed: Yes A+Ox3, no distress Eyes: Conjunctiva Clear ENT: Hearing grossly normal neck: supple Respiratory: Positive: No respiratory distress, No accessory muscle use Cardiovascular: skin color reflect adequate perfusion Neurological: Positive: Alert, ambulatory without difficulty Psychological: Positive: Normal Response To Family Skin: Positive: no rash, no ecchymosis He walks with an antalgic gait Shoulder: Shoulder: Inspection and Palpation: Tenderness to palpation is noted at the greater tuberosity Range of motion: Slightly limited and painful at extreme range in all planes Strength: 5/5 Tone: Normal muscle tone of the shoulder. Special tests: Empty can test negative,lift off test is painful, Garfield's test negative. Crank labral test negative. No sulcus sign noted. Hip/ Spine: Spine: No loss of the normal lumbar lordosis or step-off. No specific area of midline or paraspinal tenderness spine noted but he reports pain in the lumbar area. There is no tenderness of the costovertebral angle bilaterally. Stability: No obvious instability. Strength: Flexion, extension, left rotation, left lateral bending, right lateral bending and right rotation strength is intact. ROM: Slightly limited and painful range of motion Special Tests: Straight leg raise is negative bilaterally. Left Hip: Insp/Palp: Normal to inspection and palpation. No tenderness to palpation noted at the greater trochanter of gluteus medius muscle Strength: 5/5 bilaterally. Normal muscle tone bilaterally. ROM: Limited and painful range of motion. Special tests:: Sandra test with reproduction of pain in the groin, fadir is painful. Skin: No scars, rashes, lesions or ecchymosis. Neuro: Sensation intact to light touch. Motor and sensory intact. Reflexes: Left DTR's are intact. Right DTR's are intact. Toes downgoing. Coordination normal. Distal pulses intact. Triage Information Reviewed: Yes Vital Signs Reviewed: Yes Diagnostics - Radiology No standard instances Radiology Interpretation Completed By: Radiologist - X-ray of the right shoulder : IMPRESSION: #. No traumatic injury of the shoulder evident. #. 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 X-ray of the lumbar spine: Report: Alignment is anatomic. No cortical disruption or trabecular impaction to indicate a vertebral body fracture. Preserved disc spaces. Unremarkable soft tissue contours. IMPRESSION:#. Negative exam. X-ray of the left hip:#. Negative for fracture or articular malalignment. #. 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 Hip Injury Course/Dx - Course Course Of Treatment: During the visit today, we obtained x-rays of right shoulder: No traumatic injury of the shoulder evident. #. 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 Xrays left hip:#. Negative for fracture or articular malalignment. #. 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 Xrays lumbar spine: neg for fracture. We discussed the findings which are consistent with shoulder lumbar and left hip strain . He did have some left sided lumbar radicular symptoms but that seems to be resolving now; Plan to start physical therapy and follow up with orthopedics for further management. I discussed with him the need to get MRI with contrast for further evaluation of the findings and x-rays and that can be done with orthopedics and he follows up . We discussed by the pain medication and he does not want to try any pain medications. Will prescribe flexeril for pain relief. Patient expressed understanding . - Differential Dx/Diagnosis Provider Diagnosis: Lumbar strain, Left hip pain, Right shoulder pain, Abnormal x-ray, Left hip impingement syndrome Discharge - Sign-Out/Discharge Documenting (check all that apply): Patient Departure All imaging exams completed and their final reports reviewed: Yes - Discharge Plan Condition: Stable Disposition: HOME Prescriptions: Cyclobenzaprine TAB* [Flexeril 10 MG TAB*] 10 mg PO BID PRN 10 Days #20 tab PRN Reason: Spasms - Back Patient Education Materials: Rotator Cuff Injury (ED), Low Back Strain (ED), Lower Back Exercises (ED), Hip Impingement (ED) Referrals: Keith Bishop NP [Primary Care Provider] - 1 Week Eagle Glynn MD [Medical Doctor] - 1 Week Additional Instructions: Start Physical therapy. Start Gentle ROM exercises. Pain control as needed. Follow up with your primary care doctor in 1 week. Follow up with orthopedics in 1 week. YOu will need MRI with contrast for further evaluation of xray finding of the arm bone. Return to Urgent care / ER if symptoms get worse. - Billing Disposition and Condition Condition: STABLE Disposition: Home
== END 2019-02-19 14:45 | disposition home or self-care (01) ==
LOC: UCEAST 12:39
DX: S39.012A Strain of muscle, fascia and tendon of lower back, initial encounter (principal); W19.XXXA Unspecified fall, initial encounter; Y93.89 Activity, other specified; Y92.9 Unspecified place or not applicable; M25.552 Pain in left hip; M25.511 Pain in right shoulder; F17.210 Nicotine dependence, cigarettes, uncomplicated
CPT/HCPCS: 72100; 99212; G0463

== ENCOUNTER 2019-09-02 14:49 | Emergency (ER) | payer OTHER ==
[2019-09-02 15:35] VITALS: BP 131/70
--- NOTE | 2019-09-02 15:39 | UC ---
Nausea/Vomiting/Diarrhea HPI - HPI Summary HPI Summary: Woke up yesterday w/ runny nose, congestion, headache; vomiting started yesterday afternoon, with chills, hips and legs ache. has one sick exposure at work. - History of Current Complaint Chief Complaint: UCGI Stated Complaint: VOMITING Time Seen by Provider: 09/02/19 15:36 Hx Obtained From: Patient Pain Intensity: 4 Pain Scale Used: 0-10 Numeric Aggravating Factor(s): Nothing Alleviating Factor(s): Nothing - Allergies/Home Medications Allergies/Adverse Reactions: Allergies Allergy/AdvReac Type Severity Reaction Status Date / Time metoclopramide [From Reglan] Allergy Agitation Verified 09/02/19 15:35 malt Allergy Agitation Uncoded 09/02/19 15:35 Steroid MDI AdvReac Severe Agitation Uncoded 09/02/19 15:35 DAIRY AdvReac Mild Congestion Uncoded 09/02/19 15:35 Home Medications: Home Medications Cbd Oil PRN 09/02/19 [History] Medical Marijuana TID 09/02/19 [History] Ondansetron ODT TAB* [Zofran 4 MG Odt TAB*] 4 mg PO ONCE 1 Days #1 tab 09/02/19 [Rx] PMH/Surg Hx/FS Hx/Imm Hx Previously Healthy: Yes Other History Of: Negative For: HIV, Hepatitis B, Hepatitis C, Anticoagulant Therapy - Surgical History Surgical History: Yes Surgery Procedure, Year, and Place: rhinoplasty 2005. tonsillectomy - Family History Known Family History: Positive: Cardiac Disease, Hypertension, Diabetes, Other - note pt is adopted, but he knows his parents' histories , Non- Contributory - Social History Alcohol Use: None Substance Use Type: Marijuana Substance Use Comment - Amount & Last Used: 02/17/19 Smoking Status (MU): Heavy Every Day Tobacco Smoker Type: Cigarettes Amount Used/How Often: 1 ppd Length of Time of Smoking/Using Tobacco: since age 18 Have You Smoked in the Last Year: Yes Household Exposure Type: Cigarettes - Immunization History Most Recent Influenza Vaccination: "Last year" Most Recent Tetanus Shot: unknown Most Recent Pneumonia Vaccination: unsure Review of Systems All Other Systems Reviewed And Are Negative: Yes Constitutional: Positive: Fever, Chills, Fatigue ENT: Positive: Sinus Congestion. Negative: Sore Throat Respiratory: Positive: Cough Gastrointestinal: Positive: Vomiting, Nausea. Negative: Abdominal Pain, Diarrhea Musculoskeletal: Positive: Arthralgia, Myalgia Neurological/Mental Status: Positive: Headache. Negative: Weakness Physical Exam Triage Information Reviewed: Yes Appearance: Well-Appearing Vital Signs: Initial Vital Signs Temp 100.8 F 09/02/19 15:30 Pulse 91 09/02/19 15:30 Resp 17 09/02/19 15:30 BP 131/70 09/02/19 15:30 Pulse Ox 100 09/02/19 15:30 Vital Signs Reviewed: Yes Eyes: Positive: Conjunctiva Clear Neck: Positive: Supple, Nontender, No Lymphadenopathy Respiratory Exam: Normal Cardiovascular Exam: Normal Abdomen Description: Positive: Nontender, Soft Neurological: Positive: Alert Psychological: Negative: Normal Response To Family - mother was present for visit and spoke for patient and over patient. Skin: Negative: Rashes Naus/Vom/Diarrhea Course/Dx - Course Course Of Treatment: viral syndrome with vomiting. feels like he cant' stop vomiting. he does not think its related to marijuana consumption. i did review s/sx of cyclical vomiting syndrome. rapid flu was +, declined tamiflu. he wanted zofran went home and when he was on site. was able to do this. vitals are good with a slight fever. - Differential Dx/Diagnosis Differential Diagnoses - Male: Appendicitis, Gastritis Provider Diagnosis: Influenza Condition At Discharge: Good Discharge ED - Sign-Out/Discharge Documenting (check all that apply): Patient Departure All imaging exams completed and their final reports reviewed: No Studies - Discharge Plan Condition: Good Disposition: HOME Prescriptions: Ondansetron ODT TAB* [Zofran 4 MG Odt TAB*] 4 mg PO ONCE 1 Days #1 tab Patient Education Materials: Influenza (ED) Forms: *Work Release Referrals: Keith Bishop NP [Primary Care Provider] - Additional Instructions: This virus is self limiting but if you get worse please go to the emergency room as influenza could be deadly. We recommend the yearly flu vaccine for protection. Please read the patient education paperwork - Billing Disposition and Condition Condition: GOOD Disposition: Home
[2019-09-02] MEDS ORDERED: Ondansetron ODT TAB* 4 MG SL ONE (15:42)
[2019-09-02 15:55] LABS: Influenza B Molecular POSITIVE (Negative)
== END 2019-09-02 16:16 | disposition home or self-care (01) ==
LOC: UCCORT 14:49
DX: J11.1 Influenza due to unidentified influenza virus with other respiratory manifestations (principal); R11.2 Nausea with vomiting, unspecified; F17.210 Nicotine dependence, cigarettes, uncomplicated; Z88.8 Allergy status to other drugs, medicaments and biological substances; Z91.011 Allergy to milk products; Z91.09 Other allergy status, other than to drugs and biological substances
CPT/HCPCS: 99212; A9270-GY; G0463

== ENCOUNTER 2019-09-04 06:22 | Emergency (ER) | payer OTHER ==
--- NOTE | 2019-09-04 06:34 | ED ---
Influenza-Like Illness - HPI Summary HPI Summary: Pt. is a 29 y.o male who presents to the ER for ongoing cough, vomiting, fever x 3 days. Pt. was seen at 2 days of and dx with influenza. Pt. states he has had ongoing fever, cough and vomiting. Denies diarrhea, abd. pain. No past medical hx. Sxs are moderate in severity. No current modifying factors. Has been taking zofran without improvement. - History of Current Complaint Chief Complaint: EDNauseaVomitDiarrh Time Seen by Provider: 09/04/19 06:32 Hx Obtained From: Patient - Allergy/Home Medications Allergies/Adverse Reactions: Allergies Allergy/AdvReac Type Severity Reaction Status Date / Time metoclopramide [From [facility]] Allergy Agitation Verified 09/04/19 16:35 malt Allergy Agitation Uncoded 09/04/19 16:35 Steroid MDI AdvReac Severe Agitation Uncoded 09/04/19 16:35 DAIRY AdvReac Mild Congestion Uncoded 09/04/19 16:35 Home Medications: Home Medications Cbd Oil 1 applic TOPICAL DAILY 09/02/19 [History Confirmed 09/04/19] Medical Marijuana 1 inh INH TID 09/02/19 [History Confirmed 09/04/19] Albuterol HFA INHALER* [Ventolin HFA Inhaler*] 1 - 2 puff INH Q6H PRN #1 mdi [Rx] Benzonatate CAP* [Tessalon 100 MG CAP*] 100 mg PO TID #12 cap 09/04/19 [Rx Confirmed 09/04/19] PMH/Surg Hx/FS Hx/Imm Hx Previously Healthy: Yes Endocrine/Hematology History: Denies: Hx Anticoagulant Therapy, Hx Diabetes, Hx Thyroid Disease Cardiovascular History: Denies: Hx Congestive Heart Failure, Hx Deep Vein Thrombosis, Hx Hypertension , Hx Myocardial Infarction, Hx Pacemaker/ICD Comment Only: Other Cardiovascular Problems/Disorders - PALPATIONS A CHILD Respiratory History: Reports: Hx Asthma - allergy induced Denies: Hx Chronic Obstructive Pulmonary Disease (COPD), Hx Lung Cancer, Hx Pneumonia, Hx Pulmonary Embolism GI History: Denies: Hx Gall Bladder Disease, Hx Gastrointestinal Bleed, Hx Ulcer, Hx Urosepsis History: Denies: Hx Kidney Stones, Hx Renal Disease Musculoskeletal History: Reports: Hx Back Problems - "bad discs", Other Musculoskeletal History - hx B/L torn rotator cuff Sensory History: Denies: Hx Hearing Aid Neurological History: Reports: Hx Seizures - but normal EEG noted in record in 2013 Denies: Hx Dementia, Hx Migraine, Hx Transient Ischemic Attacks (TIA) Psychiatric History: Reports: Hx Anxiety - Mother states that he has "severe anxiety.", Hx of Violent Episodes Against Others Denies: Hx Eating Disorder, Hx Depression, Hx Panic Disorder, Hx Schizophrenia, Hx Bipolar Disorder - Surgical History Surgery Procedure, Year, and Place: rhinoplasty 2005. tonsillectomy Infectious Disease History: No Infectious Disease History: Denies: Hx Clostridium Difficile, Hx Hepatitis, Hx Human Immunodeficiency Virus (HIV), Hx of Known/Suspected MRSA, Hx Shingles, Hx Tuberculosis, Hx Known/ Suspected VRE, Hx Known/Suspected VRSA, History Other Infectious Disease - HX ENCEPHALITIS, Traveled Outside the [place] in Last 30 Days - Family History Known Family History: Positive: Cardiac Disease, Hypertension, Diabetes, Other - note pt is adopted, but he knows his parents' histories , Non- Contributory - Social History Alcohol Use: None Hx Substance Use: Yes Substance Use Type: Reports: Marijuana Substance Use Comment - Amount & Last Used: 02/17/19 Hx Tobacco Use: Yes Smoking Status (MU): Heavy Every Day Tobacco Smoker Type: Cigarettes Amount Used/How Often: 1 ppd Length of Time of Smoking/Using Tobacco: since age 18 Have You Smoked in the Last Year: Yes Review of Systems - ROS Summary Review of Systems Summary: Cbd Oil PRN 09/02/19 [History] Medical Marijuana TID 09/02/19 [History] Ondansetron ODT TAB* [Zofran 4 MG Odt TAB*] 4 mg PO Q6H PRN #5 tab.odt 09/02/19 [Rx] Positive: Fever, Chills ENT: Negative Cardiovascular: Negative Positive: Shortness Of Breath, Cough Positive: Vomiting, Nausea. Negative: Abdominal Pain, Diarrhea Genitourinary: Negative Positive: Myalgia Skin: Negative Neurological/Mental Status: Negative All Other Systems Reviewed And Are Negative: Yes Physical Exam Triage Information Reviewed: Yes Vital Signs On Initial Exam: Initial Vitals Temp Pulse Resp BP Pulse Ox 100.3 F 98 15 120/85 94 09/04/19 06:23 09/04/19 06:23 09/04/19 06:23 09/04/19 06:23 09/04/19 06:23 Vital Signs Reviewed: Yes Appearance: Positive: Well-Appearing - Pt. sitting up in bed in NAD. Forcefully coughing. Skin: Positive: Warm, Dry Head/Face: Positive: Normal Head/Face Inspection Eyes: Positive: Normal, EOMI, SOUTH, Conjunctiva Clear ENT: Positive: Pharynx normal, TMs normal. Negative: Tonsillar swelling, Tonsillar exudate Neck: Positive: Supple, Nontender. Negative: Nuchal Rigidity Respiratory/Lung Sounds: Positive: Clear to Auscultation, Breath Sounds Present. Negative: Rales, Rhonchi, Subcutaneous Emphysema Cardiovascular: Positive: Normal, RRR Abdomen Description: Positive: Nontender, Soft Musculoskeletal: Positive: Normal, Strength/ROM Intact Neurological: Positive: Normal, CN Intact II-III Psychiatric: Positive: Affect/Mood Appropriate Procedures - Sedation Patient Received Moderate/Deep Sedation with Procedure: No Diagnostics - Vital Signs Vital Signs Temp Pulse Resp BP Pulse Ox 09/04/19 06:23 100.3 F 98 15 120/85 94 - Laboratory Result Diagrams: 09/04/19 06:49 09/04/19 06:49 Lab Statement: Any lab studies that have been ordered have been reviewed, and results considered in the medical decision making process. Flu Symptom Course/Dx - Course Course Of Treatment: Pt. with ongoing cough and vomiting. Postive flu. low grade fever. Pt. given iv fluids, toradol and phenergan. CXR negative for acute findings per radiology. Labs show mild dehyration. On re-exam pt. feeling better and tolerating PO fluids. Benign abd. exam. WIll dc home with rx for phenergan and tessalon pearls> to f.u with pcp in 2-3 days. To return to er if sxs change or worsen. - Diagnoses Differential Diagnosis/HQI/PQRI: Positive: Bronchitis, Influenza, Pneumonia Provider Diagnoses: Pneumonia, Vomiting Discharge ED - Sign-Out/Discharge Documenting (check all that apply): Patient Departure - Discharge Plan Condition: Improved Disposition: HOME Prescriptions: Benzonatate CAP* [Tessalon 100 MG CAP*] 100 mg PO TID #12 cap Patient Education Materials: Dehydration (ED), Influenza (ED), Acute Nausea and Vomiting (ED) Referrals: Keith Bishop APPELLATE COURT CLERK [Primary Care Provider] - Additional Instructions: Follow up with PCP in 2-3 days for recheck Medication as directed Increase fluids Tylenol or Motrin for pain and fever as directed Return to ER if symptom change or worsen - Billing Disposition and Condition Condition: IMPROVED Disposition: Home - Attestation Statements Provider Attestation: I was available for consultation for this patient. I did not evaluate the patient or participate in any medical decision making or disposition decisions unless I am specifically named in the chart as having consulted on the patient. If I have consulted on the patient, please see my own ED note on the patient encounter. Mohan Angel MD
[2019-09-04] MEDS ORDERED: NS 0.9% 1000 ML** 1,000 ML IV ONE (06:42)
[2019-09-04] MEDS ORDERED: Ketorolac INJ* 30 MG/ML 1 ML VIAL IV PUSH ONE (06:42)
[2019-09-04 06:58] LABS: ABS Lymphocytes 0.8 10^3/ul (1.0-4.8); ABS Monocytes 0.5 10^3/ul (0-0.8); ABS Neutrophils 4.8 10^3/ul (1.5-7.7); Hematocrit 43 % (42-52); Hemoglobin 14.9 g/dL (14.0-18.0); Lymphocyte % 13.1 %; Mean Corpuscular HGB Conc 34 g/dL (31-36); Mean Corpuscular Hemoglobin 29 pg (27-31); Mean Corpuscular Volume 85 fL (80-94); Mean Platelet Volume 7.5 fL (7.4-10.4); Nucleated Red Blood Cells % 0.1; Platelet Count 124 10^3/uL (150-450); Red Blood Count 5.14 10^6 /uL (4.18-5.48); Red Cell Distribution Width 13 % (10-15); White Blood Count 6.1 10^3/uL (3.5-10.8)
[2019-09-04 07:13] LABS: Albumin 4.1 g/dL (3.2-5.2); Albumin/Globulin Ratio 1.7 (1-3); BUN/Creatinine Ratio 12.3 (8-20); C Reactive Protein 28.41 mg/L (<8.01); Calcium 8.2 mg/dL (8.6-10.3); EGFR Non-African American 70.2 (>60); Globulin 2.4 g/dL (2-4); Potassium 3.5 mmol/L (3.5-5.0); Total Bilirubin 0.6 mg/dL (0.2-1.0); Total Protein 6.5 g/dL (6.4-8.9)
[2019-09-04] MEDS ORDERED: Benzonatate CAP* 100 MG PO ONE (07:41)
[2019-09-04 09:05] VITALS: BP 107/53
== END 2019-09-04 09:02 | disposition home or self-care (01) ==
LOC: ED 06:22
DX: J11.00 Influenza due to unidentified influenza virus with unspecified type of pneumonia (principal); J45.909 Unspecified asthma, uncomplicated; Z91.011 Allergy to milk products; Z88.8 Allergy status to other drugs, medicaments and biological substances; F17.210 Nicotine dependence, cigarettes, uncomplicated
CPT/HCPCS: 36415; 71046; 80053; 83690; 85025; 86140; 96361; 96374; 99283; A9270-GY; J1885

== ENCOUNTER 2019-09-04 16:23 | Emergency (ER) | payer OTHER ==
[2019-09-04 16:34] VITALS: BP 141/79
--- NOTE | 2019-09-04 16:37 | UC ---
Respiratory Complaint HPI - HPI Summary HPI Summary: 29 yo male presents with cough. He tells me that 2 days ago he had flu-like symptoms and was seen in [facility] and was dx'd with the flu. He was vomiting at the time and tamiflu was held. Rx'd zofran. He was taking zofran with no relief, thus went to [facility] ED today and CXR was performed that was normal. He was given fluids, promethazine, and tessalon. He has not been vomiting since and is tolerating po well. He is here currently asking for an albuterol inhaler as he feels this will help his cough given his hx of asthma. - History of Current Complaint Chief Complaint: UCRespiratory Stated Complaint: FLU B+ HURTS TO BREATHE Time Seen by Provider: 09/04/19 16:37 Hx Obtained From: Patient Severity Initially: Moderate Severity Currently: Moderate Pain Intensity: 7 Pain Scale Used: 0-10 Numeric - Allergies/Home Medications Allergies/Adverse Reactions: Allergies Allergy/AdvReac Type Severity Reaction Status Date / Time metoclopramide [From Reg[facility]] Allergy Agitation Verified 09/04/19 16:35 malt Allergy Agitation Uncoded 09/04/19 16:35 Steroid MDI AdvReac Severe Agitation Uncoded 09/04/19 16:35 DAIRY AdvReac Mild Congestion Uncoded 09/04/19 16:35 Home Medications: Home Medications Cbd Oil 1 applic TOPICAL DAILY 09/02/19 [History Confirmed 09/04/19] Medical Marijuana 1 inh INH TID 09/02/19 [History Confirmed 09/04/19] Albuterol HFA INHALER* [Ventolin HFA Inhaler*] 1 - 2 puff INH Q6H PRN #1 mdi [Rx] Benzonatate CAP* [Tessalon 100 MG CAP*] 100 mg PO TID #12 cap 09/04/19 [Rx Confirmed 09/04/19] PMH/Surg Hx/FS Hx/Imm Hx - Additional Past Medical History Additional PMH: Chronic pain Respiratory History: Asthma Psychological History: Anxiety, Depression, Bipolar Disorder, Schizophrenia Other History Of: Negative For: HIV, Hepatitis B, Hepatitis C, Anticoagulant Therapy - Surgical History Surgical History: Yes Surgery Procedure, Year, and Place: rhinoplasty 2005. tonsillectomy - Family History Known Family History: Positive: Cardiac Disease, Hypertension, Diabetes, Other - note pt is adopted, but he knows his parents' histories , Non- Contributory - Social History Lives: With Family Alcohol Use: None Substance Use Type: Marijuana Substance Use Comment - Amount & Last Used: 02/17/19 Smoking Status (MU): Heavy Every Day Tobacco Smoker Type: Cigarettes Amount Used/How Often: 1 ppd Length of Time of Smoking/Using Tobacco: since age 18 Have You Smoked in the Last Year: Yes Household Exposure Type: Cigarettes - Immunization History Most Recent Influenza Vaccination: "Last year" Most Recent Tetanus Shot: unknown Most Recent Pneumonia Vaccination: unsure Review of Systems All Other Systems Reviewed And Are Negative: No Constitutional: Positive: Chills, Fatigue, Other - Body aches Skin: Positive: Negative Eyes: Positive: Negative ENT: Positive: Negative Respiratory: Positive: Cough Cardiovascular: Positive: Negative Gastrointestinal: Positive: Vomiting, Nausea Genitourinary: Positive: Negative Neurological/Mental Status: Positive: Negative Psychological: Positive: Negative Physical Exam - Summary Physical Exam Summary: GENERAL: NAD. WDWN. No pain distress. SKIN: No rashes, sores, lesions, or open wounds. HEENT: Head: AT/NC Eyes: EOM intact. Conjunctiva clear without inflammation or discharge. Ears: Hearing grossly normal. TMs intact, no bulging, erythema, or edema. Nose: Nasal mucosa pink and moist. NTTP maxillary and frontal sinus. Throat: Posterior oropharynx without exudates, erythema, or tonsillar enlargement. Uvula midline. NECK: Supple. Nontender. No lymphadenopathy. CHEST: CTAB. No r/r/w. No accessory muscle use. Breathing comfortably and in no distress. CV: RRR. Pulses intact. Cap refill <2seconds NEURO: Alert. PSYCH: Age appropriate behavior. Triage Information Reviewed: Yes Vital Signs: Initial Vital Signs Temp 99.3 F 09/04/19 16:31 Pulse 88 09/04/19 16:31 Resp 16 09/04/19 16:31 BP 141/79 09/04/19 16:31 Pulse Ox 98 09/04/19 16:31 Vital Signs Reviewed: Yes Respiratory Course/Dx - Course Course Of Treatment: Exam WNL. Will rx albuterol inhaler given hx of asthma. - Differential Dx/Diagnosis Provider Diagnosis: Influenza, Asthma Discharge ED - Sign-Out/Discharge Documenting (check all that apply): Patient Departure All imaging exams completed and their final reports reviewed: No Studies - Discharge Plan Condition: Stable Disposition: HOME Prescriptions: Albuterol HFA INHALER* [Ventolin HFA Inhaler*] 1 - 2 puff INH Q6H PRN #1 mdi PRN Reason: Sob/Wheezing Patient Education Materials: Asthma (ED), Influenza (ED) Referrals: Keith Bishop MUSHROOM CUTTER [Primary Care Provider] - - Billing Disposition and Condition Condition: STABLE Disposition: Home
== END 2019-09-04 16:50 | disposition home or self-care (01) ==
LOC: UCEAST 16:23
DX: J11.1 Influenza due to unidentified influenza virus with other respiratory manifestations (principal); J45.909 Unspecified asthma, uncomplicated; R11.2 Nausea with vomiting, unspecified; F20.9 Schizophrenia, unspecified; F31.9 Bipolar disorder, unspecified; F17.210 Nicotine dependence, cigarettes, uncomplicated; Z88.8 Allergy status to other drugs, medicaments and biological substances; Z91.09 Other allergy status, other than to drugs and biological substances; Z91.011 Allergy to milk products
CPT/HCPCS: 99212; G0463